=== PATIENT | female | born 1970 | race Caucasian/White ===

== ENCOUNTER 2017-08-03 15:13 | Emergency (ER) | payer OTHER ==
[~2017-08-03] VITALS: Ht 157.5 cm; Wt 71.2 kg
[2017-08-03 15:50] VITALS: BP 151/75
--- NOTE | 2017-08-03 15:55 | NUR ---
pt to lobby awaiting room, er aware, pt is ao, vss, nad
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
[2017-08-03 17:02] VITALS: BP 151/75
--- NOTE | 2017-08-03 17:02 | NUR ---
Patient discharged with v/s stable. Written and verbal after care instructions given and explained. Patient alert, oriented and verbalized understanding of instructions. Ambulatory with steady gait. All questions addressed prior to discharge. ID band removed. Patient advised to follow up with PMD. Rx of LIDOCAINE HCL given. Patient educated on indication of medication including possible reaction and side effects. Opportunity to ask questions provided and answered. ECNOURAGED HAND HYGIENE AND PT AGREED WITH IT.
== END 2017-08-03 17:02 | disposition home or self-care (01) ==
LOC: MED 15:13
DX: R07.0 Pain in throat (principal); F12.10 Cannabis abuse, uncomplicated
CPT/HCPCS: 99283